=== PATIENT | male | born 1960 | race Caucasian/White ===

== ENCOUNTER 2022-10-30 15:49 | Inpatient (IN) | payer MEDICAID ==
[~2022-10-30] VITALS: Ht 165.1 cm; Wt 95.3 kg
[2022-10-30] MEDS ORDERED: ASPIRIN 81MG TABLET PO ONE (18:45)
[2022-10-30 20:56] LABS: HEMATOCRIT. 32.1 % (42.0-52.0); HEMOGLOBIN. 10.9 g/dL (14.0-18.0); MEAN CORPUSCULAR HEMOGLOBIN 27.5 pg (28.0-32.0); MEAN CORPUSCULAR VOLUME 81.1 fL (80.0-94.0); MEAN PLATELET VOLUME 7.3 fl (7.4-10.4); PLATELET 308 x1000/uL (130-400); RED BLOOD CELL COUNT 3.96 mill/uL (4.7-6.1); RED CELL DISTRIBUTION WIDTH 14.8 % (11.6-14.6)
[2022-10-30 21:01] LABS: CHLORIDE 103 mEq/L (98-107)
[2022-10-30] MEDS ORDERED: AZITHROMYCIN 500MG/250ML 250 ML IV ONE (21:30)
[2022-10-30] MEDS ORDERED: CEFTRIAXONE 1 G PREMIX 50 ML IV ONE (21:30)
[2022-10-30 22:25] LABS: CLARITY URINE CLEAR (CLEAR); COLOR URINE YELLOW (YELLOW); KETONES URINE TRACE (NEGATIVE); LEUKOCYTE ESTERASE URINE NEGATIVE (NEGATIVE); NITRITE URINE NEGATIVE (NEGATIVE); OCCULT BLOOD URINE 2+ (NEGATIVE); PH URINE 5.5 (4.5-8.0); PROTEIN URINE 4+ (NEGATIVE)
[2022-10-30 22:27] LABS: PLATELET ESTIMATE NORMAL
[2022-10-30] MEDS ORDERED: FUROSEMIDE 40MG/4ML VIAL IVP ONE (22:30)
[2022-10-30] MEDS ORDERED: OSELTAMIVIR 75MG CAPSULE PO ONE (22:30)
[2022-10-30] MEDS ORDERED: OSELTAMIVIR 75MG CAPSULE PO NR (22:45)
[2022-10-31 05:30] VITALS: BP 146/79
[2022-10-31 08:00] VITALS: BP 149/69
[2022-10-31] MEDS ORDERED: DIPHENHYDRAMINE 50MG/ML VIAL IV PRN (09:45)
[2022-10-31] MEDS ORDERED: IPRATROPIUM/ALBUTEROL 0.5-3(2.5)MG/3ML NEB HHN PRN (09:45)
[2022-10-31] MEDS ORDERED: ONDANSETRON HCL 4MG/2ML INJ IV PRN (09:45)
[2022-10-31] MEDS ORDERED: IPRATROPIUM BROMIDE (0.02%) 0.5MG/2.5ML NEB HHN PRN (09:45)
[2022-10-31] MEDS ORDERED: ACETAMINOPHEN 325MG TABLET PO PRN (09:45)
[2022-10-31] MEDS ORDERED: CLONIDINE 0.1MG TABLET PO PRN (09:45)
[2022-10-31] MEDS ORDERED: ALBUTEROL (0.083%) 2.5MG/3ML NEB HHN PRN (09:45)
[2022-10-31] MEDS: FUROSEMIDE 40MG/4ML VIAL IV SCH (10:14)
[2022-10-31] MEDS ORDERED: POTASSIUM CHLORIDE 20MEQ TABLET SR PO NR (11:15)
[2022-10-31] MEDS: AMLODIPINE 2.5MG TABLET PO SCH ×2 (11:31→21:53)
[2022-10-31] MEDS: ASPIRIN 81MG EC TABLET PO SCH (11:31)
[2022-10-31 12:00] VITALS: BP 137/73
[2022-10-31] MEDS ORDERED: ATOR-2 MT (12:11)
[2022-10-31] MEDS ORDERED: CLOP75TA33 MT (12:11)
[2022-10-31] MEDS ORDERED: METO25TA3 PO (12:11)
[2022-10-31] MEDS ORDERED: ASPI-1497 MT (12:11)
[2022-10-31] MEDS ORDERED: FURO40TA5 MT (12:11)
[2022-10-31] MEDS ORDERED: ISOS10TA2 MT (12:11)
[2022-10-31] MEDS ORDERED: EMPA10TA MT (12:11)
[2022-10-31] MEDS: CLOPIDOGREL 75MG TABLET PO SCH (13:43)
[2022-10-31] MEDS: ISOSORBIDE DINITRATE 10MG TABLET PO SCH ×2 (13:43→17:33)
[2022-10-31 16:00] VITALS: BP 132/72
[2022-10-31 16:45] LABS: CREATINE KINASE 98 IU/L (39-308)
[2022-10-31 20:00] VITALS: BP 140/83
[2022-10-31] MEDS: CEFTRIAXONE 1,000 MG in DEXTROSE 5% WATER 50 ML IV SCH (20:35)
[2022-10-31] MEDS: AZITHROMYCIN 500 MG in DEXT 5% WATER 250 ML IV SCH (21:53)
[2022-10-31] MEDS: ATORVASTATIN CALCIUM 40MG TABLET PO SCH (21:53)
[2022-11-01] VITALS (7 sets, daily range): BP systolic 115–149; BP diastolic 61–80
[2022-11-01 06:07] LABS: HEMATOCRIT. 29.2 % (42.0-52.0); HEMOGLOBIN. 9.8 g/dL (14.0-18.0); MEAN CORPUSCULAR HEMOGLOBIN 27.6 pg (28.0-32.0); MEAN CORPUSCULAR VOLUME 81.9 fL (80.0-94.0); MEAN PLATELET VOLUME 7.8 fl (7.4-10.4); PLATELET 288 x1000/uL (130-400); RED BLOOD CELL COUNT 3.56 mill/uL (4.7-6.1); RED CELL DISTRIBUTION WIDTH 14.6 % (11.6-14.6)
[2022-11-01 06:36] LABS: CHLORIDE 99 mEq/L (98-107)
[2022-11-01] MEDS: FUROSEMIDE 40MG/4ML VIAL IV SCH (10:46)
[2022-11-01] MEDS: AMLODIPINE 2.5MG TABLET PO SCH ×2 (10:47→20:15)
[2022-11-01] MEDS: CLOPIDOGREL 75MG TABLET PO SCH (10:47)
[2022-11-01] MEDS: LOSARTAN POTASSIUM 25 MG TABLET PO SCH (10:47)
[2022-11-01] MEDS: ASPIRIN 81MG EC TABLET PO SCH (10:48)
[2022-11-01] MEDS: ISOSORBIDE DINITRATE 10MG TABLET PO SCH ×3 (10:48→18:26)
[2022-11-01] MEDS ORDERED: LOSA25TA3 PO (13:11)
[2022-11-01 14:30] LABS: PLATELET ESTIMATE NORMAL
[2022-11-01] MEDS: CEFTRIAXONE 1,000 MG in DEXTROSE 5% WATER 50 ML IV SCH (20:14)
[2022-11-01] MEDS: ATORVASTATIN CALCIUM 40MG TABLET PO SCH (20:14)
[2022-11-01] MEDS: AZITHROMYCIN 500 MG in DEXT 5% WATER 250 ML IV SCH (21:24)
[2022-11-02] VITALS: BP 112/60
[2022-11-02 04:00] VITALS: BP 123/60
[2022-11-02 06:46] LABS: HEMATOCRIT. 26.2 % (42.0-52.0); HEMOGLOBIN. 8.9 g/dL (14.0-18.0); MEAN CORPUSCULAR HEMOGLOBIN 27.5 pg (28.0-32.0); MEAN CORPUSCULAR VOLUME 80.5 fL (80.0-94.0); MEAN PLATELET VOLUME 7.4 fl (7.4-10.4); PLATELET 323 x1000/uL (130-400); RED BLOOD CELL COUNT 3.25 mill/uL (4.7-6.1); RED CELL DISTRIBUTION WIDTH 14.5 % (11.6-14.6)
[2022-11-02] MEDS: INSULIN LISPRO 100 UNITS/ML SUBCUT SCH ×4 (07:40→20:47)
[2022-11-02 08:00] VITALS: BP 143/68
[2022-11-02] MEDS ORDERED: DEXTROSE 50% WATER 50ML SYRINGE IV PRN (08:00)
[2022-11-02] MEDS: ASPIRIN 81MG EC TABLET PO SCH (09:01)
[2022-11-02] MEDS: CLOPIDOGREL 75MG TABLET PO SCH (09:01)
[2022-11-02] MEDS: ISOSORBIDE DINITRATE 10MG TABLET PO SCH ×3 (09:01→16:39)
[2022-11-02] MEDS: AMLODIPINE 2.5MG TABLET PO SCH ×2 (09:01→20:46)
[2022-11-02] MEDS: LOSARTAN POTASSIUM 25 MG TABLET PO SCH (09:01)
[2022-11-02] MEDS: FUROSEMIDE 40MG/4ML VIAL IV SCH (09:01)
[2022-11-02 09:10] LABS: ANTI-NUCLEAR ANTIBODIES DIRECT Negative (Negative)
[2022-11-02] MEDS: BLOOD SUGAR DIAGNOSTIC STRIP TEST SCH ×3 (11:44→20:48)
[2022-11-02 12:00] VITALS: BP 141/69
[2022-11-02 12:26] LABS: NUCLEATED RED BLOOD CELLS 2 /100 WBC; PLATELET ESTIMATE NORMAL
[2022-11-02] MEDS ORDERED: AZIT500T8 MT (13:19)
[2022-11-02 16:00] VITALS: BP 157/77
[2022-11-02] MEDS ORDERED: POTASSIUM CHLORIDE 20MEQ TABLET SR PO NR (19:45)
[2022-11-02 20:00] VITALS: BP 147/69
[2022-11-02] MEDS: CEFTRIAXONE 1,000 MG in DEXTROSE 5% WATER 50 ML IV SCH (20:11)
[2022-11-02] MEDS: ATORVASTATIN CALCIUM 40MG TABLET PO SCH (20:44)
[2022-11-02] MEDS: AZITHROMYCIN 500 MG in DEXT 5% WATER 250 ML IV SCH (20:45)
[2022-11-03] VITALS: BP 131/65
[2022-11-03 04:00] VITALS: BP 141/68
[2022-11-03] MEDS: BLOOD SUGAR DIAGNOSTIC STRIP TEST SCH (05:47)
[2022-11-03] MEDS: INSULIN LISPRO 100 UNITS/ML SUBCUT SCH (06:20)
[2022-11-03 08:00] VITALS: BP 132/64
[2022-11-03] MEDS: FUROSEMIDE 40MG/4ML VIAL IV SCH (08:15)
[2022-11-03] MEDS: AMLODIPINE 2.5MG TABLET PO SCH (08:16)
[2022-11-03] MEDS: ISOSORBIDE DINITRATE 10MG TABLET PO SCH (08:16)
[2022-11-03] MEDS: ASPIRIN 81MG EC TABLET PO SCH (08:16)
[2022-11-03] MEDS: LOSARTAN POTASSIUM 25 MG TABLET PO SCH (08:16)
[2022-11-03] MEDS: CLOPIDOGREL 75MG TABLET PO SCH (08:16)
[2022-11-03 08:48] VITALS: BP 111/75
== END 2022-11-03 11:20 | disposition home or self-care (01) | DRG 720 ==
LOC: ER 15:49 → MICUSO 22:23 → EDBEDREQTM 22:30 → EDBEDREQ 22:30 → 8WST 10-31 03:52
PROVIDERS: ADMIT Internal Medicine; ATTEND Internal Medicine
DX: A41.9 Sepsis, unspecified organism (principal); N17.9 Acute kidney failure, unspecified; E43 Unspecified severe protein-calorie malnutrition; J18.9 Pneumonia, unspecified organism; I13.0 Hypertensive heart and chronic kidney disease with heart failure and stage 1 through stage 4 chronic kidney disease, or unspecified chronic kidney disease; E11.22 Type 2 diabetes mellitus with diabetic chronic kidney disease; D63.1 Anemia in chronic kidney disease; I50.9 Heart failure, unspecified; I25.10 Atherosclerotic heart disease of native coronary artery without angina pectoris; N18.9 Chronic kidney disease, unspecified; E78.5 Hyperlipidemia, unspecified; Z95.5 Presence of coronary angioplasty implant and graft; Z68.34 Body mass index [BMI] 34.0-34.9, adult; Z20.822 Contact with and (suspected) exposure to COVID-19
CPT/HCPCS: 36415; 71045; 76770; 80048; 80053; 81003; 82550; 82570; 83036; 83605; 83735; 83880; 84145; 84156; 84443; 84484; 85025; 85379; 86038; 86160; 87426; 87804; 93005; 93306; 93970; 97162; 99285; C9803; J0456; J0696; J1815; J1940; J7060